=== PATIENT | female | born 1995 | race Caucasian/White ===

== ENCOUNTER → 2017-03-06 | Emergency (ER) | payer OTHER ==
[~2017-03-06] VITALS: Ht 165.1 cm; Wt 54.4 kg
[~2017-03-06] MED LIST: BCP; DEXAMETHASONE PF 10 MG/ML (DECADRON) VIAL IM STA
--- NOTE | 2017-03-06 09:44 | ED General ---
General Chief Complaint: Cough/Cold/Flu Symptoms Stated Complaint: ALLERGIES Nursing Triage Note: AMB TO ED REPORTS HAS SEASON ALLERGIES OTC MEDS WILL NOT HELP. LAST TIME SHE RECEIVED STEROID IM. Nursing Sepsis Screen: No Definite Risk Source of Information: Patient Exam Limitations: No Limitations History of Present Illness Time Seen by Provider: 09:28 Initial Comments Here with report of seasonal allergies that are not responding to over-the- counter meds. She is previously had a steroid shot that was very effective and was hoping for that today. She states that she does not tolerate the over-the- counter medicines such as Claritin very well because it makes her nauseated and she has vomiting at night. She had previously done nasal spray but this caused bleeding of her nose. Reports recently that she has had it she/watery eyes, nasal congestion and itching consistent with allergy symptoms that are now keeping her awake at night and causing problems. Timing/Duration: 1 Week, Getting Worse Severity: Moderate Associated Systoms: No Chest Pain, No Cough, No Fever/Chills, Nausea/Vomiting Allergies and Home Medications Allergies Coded Allergies: ibuprofen (Verified Allergy, Unknown, 03/06/17) Home Medications [Bcp] , (Reported) Constitutional: see HPI EENTM: nose congestion, see HPI, tearing, throat pain Respiratory: No cough, No short of breath Cardiovascular: no symptoms reported Gastrointestinal: see HPI Musculoskeletal: no symptoms reported Skin: no symptoms reported Past Pzcplxw-Rjyphs-Gnkxrh Hx Patient Social History Alcohol Use: Occasionally Uses Recreational Drug Use: No Smoking Status: Current Someday Smoker Recent Foreign Travel: No Contact w/Someone Who Travel: No Recent Infectious Disease Expo: No Seasonal Allergies Seasonal Allergies: Yes Surgeries HX Surgeries: No Respiratory Hx Respiratory Disorders: No Cardiovascular Hx Cardiac Disorders: Yes Cardiac Disorders: Heart Murmur Neurological Hx Neurological Disorders: No Genitourinary Hx Genitourinary Disorders: No Gastrointestinal Hx Gastrointestinal Disorders: No Musculoskeletal Hx Musculoskeletal Disorders: No Endocrine Hx Endocrine Disorders: No HEENT HX ENT Disorders: No Psychosocial Hx Psychiatric Problems: No Reviewed Nursing Assessment Reviewed/Agree w Nursing PMH: Yes Family Medical History Significant Family History: No Pertinent Family Hx Physical Exam Vital Signs Vital Sign - Last 12Hours 03/06/17 09:12 Pulse 76 Resp 18 B/P (MAP) 139/89 Pulse Ox 99 Capillary Refill : Less Than 3 Seconds General Appearance: No Apparent Distress, WD/WN HEENT: TMs Normal, Pharyngeal Erythema, Other (moderate nasal congestion) Neck: Non Tender, Supple Respiratory: Lungs Clear, Normal Breath Sounds Cardiovascular: Regular Rate, Rhythm, No Murmur Gastrointestinal: Non Tender, Soft Neurologic/Psychiatric: Alert, Oriented x3, Normal Mood/Affect Skin: Normal Color, Warm/Dry Progress/Results/Core Measures Results/Orders My Orders Orders - BARBARA KRAUS MD Dexamethasone Pf Injection (Decadron Pf (03/06/17 09:37) Vital Signs/I&O Vital Sign - Last 12Hours 03/06/17 09:12 Pulse 76 Resp 18 B/P (MAP) 139/89 Pulse Ox 99 Blood Pressure Mean: 106 Progress Note : Progress Note Seen and evaluated. Decadron 10 mg IM. Discharged home with return precautions. Patient verbalize understanding instructions and agreement with plan. Departure Impression Impression: Primary Impression: Allergic rhinitis Qualified Codes: J30.1 - Allergic rhinitis due to pollen Disposition: 01 HOME, SELF-CARE Condition: Improved Departure-Patient Inst. Decision time for Depature: 09:45 Referrals: NO,LOCAL PHYSICIAN (PCP/Family) Primary Care Physician Patient Instructions: Seasonal Allergies (DC) Add. Discharge Instructions: All discharge instructions reviewed with patient and/or family. Voiced understanding. You may use yhhp-ldd-pzmwkgi medicines such as Claritin or the generic loratadine, or you may use Zyrtec or the generic cetirizine as needed for allergy symptoms. Another option that you may try is Coricidin. Take medications per package directions. You may use one of the options with do not use them together. You should establish care with a primary care provider in [facility]. Return for worse pain, fever, vomiting, weakness, rhythm problems or other concerns as needed. BARBARA KRAUS MD Mar 06, 2017 09:44
[2017-03-06 09:51] VITALS: BP 138/99
== END ==
LOC: ER 08:43
DX: J30.9 Allergic rhinitis, unspecified (principal); F17.200 Nicotine dependence, unspecified, uncomplicated
CPT/HCPCS: 99282

== ENCOUNTER 2017-03-13 22:05 | Emergency (ER) | payer OTHER ==
[~2017-03-13] VITALS: Ht 165.1 cm; Wt 54.4 kg
[~2017-03-13 22:05] MED LIST changes: -DEXAMETHASONE PF 10 MG/ML (DECADRON) VIAL IM STA
[2017-03-13 22:31] LABS: BILIRUBIN,URINE NEGATIVE (NEGATIVE); KETONES,URINE NEGATIVE (NEGATIVE); LEUKOCYTE ESTERASE ,URINE 3+ (NEGATIVE); NITRITE,URINE NEGATIVE (NEGATIVE); PH,URINE 7 (5-9); PROTEIN,URINE 2+ (NEGATIVE); UROBILINOGEN,URINE NORMAL (NORMAL)
[2017-03-13 22:38] LABS: SQUAMOUS EPITHELIAL CELL,UR 0-2 /HPF
[2017-03-13] MEDS ORDERED: KETOROLAC 30 MG/ML VIAL ONE (22:46)
[2017-03-13] MEDS ORDERED: ONDANSETRON 4 MG/2 ML (SDV) Z0FRAN ONE (22:46)
[2017-03-13] MEDS ORDERED: KETOROLAC 30 MG/ML VIAL IVP STA (22:47)
[2017-03-13] MEDS ORDERED: LACTATED RINGERS 1,000 ML IV ONE ×2 (22:47)
--- NOTE | 2017-03-13 22:47 | ED Abdominal Pain ---
General Chief Complaint: Abdominal/GI Problems Stated Complaint: LOW BACK PAIN/LOWER RIGHT ABD PAIN Source of Information: Patient History of Present Illness Time Seen By Provider: 22:15 Initial Comments C/O RIGHT LOWER BACK PAIN AND LOWER RIGHT ABDOMINAL PAIN SINCE WAKING FROM A NAP AT 1700 TONIGHT WENT TO GYM AFTER THAT, AND PAIN HAS GOTTEN WORSE NOTHING IMPROVES PAIN BUT HAS NOT TAKEN ANYTHING FOR PAIN HAS HAD SLIGHT SUBJECTIVE LOW GRADE FEVER AND HAS HAD CHILLS TONIGHT + NAUSEA, NO VOMITING NO URINARY SYMPTOMS NO HISTORY OF SIMILAR LMP 03/06/17--NUVARING IN PLACE. NO PCP--IS LIVING HERE WITH BOYFRIEND , BUT IS FROM [place], "AND SOMETIMES I LIVE IN [place]" "IT'S CHAOTIC-I MOVE ALL AROUND" Allergies and Home Medications Allergies Coded Allergies: ibuprofen (Verified Allergy, Unknown, 03/14/17) Home Medications Fluconazole 200 Mg Tablet, 200 MG PO DAILY, #3 Prescribed by: ADWOA ESTRADA on 03/14/17 0134 Nitrofurantoin Monohyd/M-Cryst 100 Mg Capsule, 100 MG PO BID, #20 Prescribed by: ADWOA ESTRADA on 03/14/17 0118 [Bcp] , (Reported) Review of Systems Constitutional: see HPI, chills, fever EENTM: No Symptoms Reported Respiratory: No Symptoms Reported Cardiovascular: No Symptoms Reported Gastrointestinal: See HPI, Abdominal Pain, Denies Constipated, Denies Diarrhea , Nausea, Denies Vomiting Genitourinary: See HPI, Denies Burning, Denies Discharge, Denies Frequency, Flank Pain, Denies Hematuria, Denies Incontinence, Denies Pain, Denies Urgency Musculoskeletal: see HPI, back pain Skin: no symptoms reported Psychiatric/Neurological: No Symptoms Reported Endocrine: No Symptoms Reported Hematologic/Lymphatic: No Symptoms Reported Past Xnfjpgs-Nijbwl-Bxwkov Hx Patient Social History Alcohol Use: Regular Use (ON WEEKENDS) Recreational Drug Use: Yes (THC, MUSHROOMS, LSD) Smoking Status: Current Someday Smoker Type Used: Cigarettes Recent Foreign Travel: No Contact w/Someone Who Travel: No Seasonal Allergies Seasonal Allergies: Yes Surgeries HX Surgeries: No Respiratory Hx Respiratory Disorders: No Cardiovascular Hx Cardiac Disorders: Yes Cardiac Disorders: Heart Murmur Neurological Hx Neurological Disorders: No Reproductive System : No Female Reproductive Disorders: Denies Genitourinary Hx Genitourinary Disorders: No Gastrointestinal Hx Gastrointestinal Disorders: No Musculoskeletal Hx Musculoskeletal Disorders: No Endocrine Hx Endocrine Disorders: No HEENT HX ENT Disorders: No Cancer Hx Cancer: No Psychosocial Hx Psychiatric Problems: No Integumentary HX Skin/Integumentary Disorder: No Blood Transfusions Hx Blood Disorders: No Physical Exam Vital Signs VS - Last 72 Hours, by Label 03/13/17 03/14/17 22:05 02:24 Temp 99.4 Pulse 74 79 Resp 14 14 B/P (MAP) 135/76 Pulse Ox 98 98 O2 Delivery Room Air Room Air Capillary Refill : General Appearance: WD/WN, no apparent distress Neck: normal inspection Respiratory: normal breath sounds, no respiratory distress, no accessory muscle use Cardiovascular: regular rate, rhythm, no murmur Gastrointestinal: normal bowel sounds, soft, no organomegaly, no pulsatile mass , No distended, No guarding, No rebound, tenderness (SUPRAPUBIC AND RIGHT FLANK) , No hernia, No mass Extremities: normal inspection Back: CVA tenderness (R) 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, no motor/sensory deficits, alert, normal mood/affect, oriented x 3 Skin: normal color, warm/dry, No rash Progress/Results/Core Measures Results/Orders Lab Results Laboratory Tests Test 03/13/17 22:07 03/13/17 23:15 Range/Units Urine Color YELLOW Urine Clarity CLEAR Urine pH 7 5-9 Urine Specific [place] 1.005 L 1.016-1.022 Urine Protein 2+ H NEGATIVE Urine Glucose (UA) NEGATIVE NEGATIVE Urine Ketones NEGATIVE NEGATIVE Urine Nitrite NEGATIVE NEGATIVE Urine Bilirubin NEGATIVE NEGATIVE Urine Urobilinogen NORMAL NORMAL MG/DL Urine Leukocyte Esterase 3+ H NEGATIVE Urine RBC (Auto) 5+ H NEGATIVE Urine RBC 5-10 H /HPF Urine WBC 10-25 H /HPF Urine Squamous Epithelial Cells 0-2 /HPF Urine Crystals NONE /LPF Urine Bacteria FEW H /HPF Urine Casts NONE /LPF Urine Mucus NEGATIVE /LPF Urine Culture Indicated YES White Blood Count 14.9 H 4.3-11.0 10^3/uL Red Blood Count 4.71 4.35-5.85 10^6/uL Hemoglobin 13.3 11.5-16.0 G/DL Hematocrit 40 35-52 % Mean Corpuscular Volume 84 80-99 FL Mean Corpuscular Hemoglobin 28 25-34 PG Mean Corpuscular Hemoglobin Concent 34 32-36 G/DL Red Cell Distribution Width 13.5 10.0-14.5 % Platelet Count 208 130-400 10^3/uL Mean Platelet Volume 9.1 7.4-10.4 FL Neutrophils (%) (Auto) 70 42-75 % Lymphocytes (%) (Auto) 16 12-44 % Monocytes (%) (Auto) 9 0-12 % Eosinophils (%) (Auto) 5 0-10 % Basophils (%) (Auto) 1 0-10 % Neutrophils # (Auto) 10.4 H 1.8-7.8 X 10^3 Lymphocytes # (Auto) 2.4 1.0-4.0 X 10^3 Monocytes # (Auto) 1.3 H 0.0-1.0 X 10^3 Eosinophils # (Auto) 0.7 H 0.0-0.3 10^3/uL Basophils # (Auto) 0.1 0.0-0.1 10^3/uL Neutrophils % (Manual) 68 % Lymphocytes % (Manual) 19 % Monocytes % (Manual) 7 % Eosinophils % (Manual) 4 % Basophils % (Manual) 0 % Band Neutrophils 0 % Reactive Lymphocytes 2 % Blood Morphology Comment NORMAL Sodium Level 135 135-145 MMOL/L Potassium Level 3.4 L 3.6-5.0 MMOL/L Chloride Level 100 98-107 MMOL/L Carbon Dioxide Level 24 21-32 MMOL/L Anion Gap 11 5-14 MMOL/L Blood Urea Nitrogen 12 7-18 MG/DL Creatinine 0.78 0.60-1.30 MG/DL Estimat Glomerular Filtration Rate > 60 BUN/Creatinine Ratio 15 Glucose Level 107 H 70-105 MG/DL Calcium Level 9.2 8.5-10.1 MG/DL Total Bilirubin 0.7 0.1-1.0 MG/DL Aspartate Amino Transf (AST/SGOT) 22 5-34 U/L Alanine Aminotransferase (ALT/SGPT) 27 0-55 U/L Alkaline Phosphatase 39 L 40-136 U/L Total Protein 7.8 6.4-8.2 GM/DL Albumin 4.1 3.2-4.5 GM/DL Amylase Level 41 25-125 U/L Lipase 17 8-78 U/L My Orders Orders - ADWOA ESTRADA DO Urine Bedside (03/13/17 22:15) Ua Culture If Indicated (03/13/17 22:15) Saline Lock/Iv-Start (03/13/17 22:21) Amylase (03/13/17 22:21) Cbc With Automated Diff (03/13/17 22:21) Comprehensive Metabolic Panel (03/13/17 22:21) Lipase (03/13/17 22:21) Urine Culture (03/13/17 22:07) Saline Lock/Iv-Start (03/13/17 22:47) Ct Abd/Pelvis Wo(Kidney Stone) (03/13/17 22:47) Acute Abd Series (03/13/17 22:47) Ketorolac Injection (Toradol Injection) (03/13/17 22:47) Saline Lock/Iv-Start (03/13/17 22:47) Lactated Ringers (Lr 1000 Ml Iv Solution (03/13/17 22:47) Ondansetron Injection (Zofran Injectio (03/13/17 23:00) Diphenhydramine Injection (Benadryl Inje (03/13/17 23:00) Diphenhydramine Injection (Benadryl Inje (03/13/17 22:49) Manual Differential (03/13/17 23:15) Ceftriaxone Injection (Rocephin Injectio (03/14/17 01:15) Rx-Nitrofurantoin [place] (Rx-Macrobid) (03/14/17 01:15) Nitrofurantoin Capsule,Macro (Macrobid C (03/14/17 01:45) Ketorolac Injection (Toradol Injection) (03/13/17 22:46) Lactated Ringers (Lr 1000 Ml Iv Solution (03/13/17 22:47) Ondansetron Injection (Zofran Injectio (03/13/17 22:46) Medications Given in ED Current Medications Medications Dose Ordered Sig/Vanna Route Start Time Stop Time Status Last Admin Dose Admin Ceftriaxone Sodium 1000 mg/ Sodium Chloride 50 ml @ 100 mls/hr ONCE ONCE IV 03/14/17 01:15 03/14/17 01:44 DC 03/14/17 01:39 100 MLS/HR Diphenhydramine HCl 25 mg ONCE ONCE IVP 03/13/17 23:00 03/13/17 23:01 DC 03/13/17 23:05 25 MG Lactated Ringer's 1,000 ml @ 0 mls/hr Q0M ONCE IV 03/13/17 22:47 03/14/17 02:35 DC 03/13/17 23:03 0 MLS/HR Nitrofurantoin Macrocrystals 100 mg ONCE ONCE PO 03/14/17 01:45 03/14/17 01:46 DC 03/14/17 01:39 100 MG Ondansetron HCl 4 mg ONCE ONCE IVP 03/13/17 23:00 03/14/17 02:35 DC 03/13/17 23:04 4 MG Vital Signs/I&O Vital Sign - Last 12Hours 03/13/17 03/14/17 22:05 02:24 Temp 99.4 Pulse 74 79 Resp 14 14 B/P (MAP) 135/76 Pulse Ox 98 98 O2 Delivery Room Air Room Air Diagnostic Imaging Comments CT ABDOMEN /PELVIS--NO ACUTE PROCESS, PER RADIOLOGIST REPORT @ 0056 ACUTE ABDOMEN XRAYS--NO ACUTE PROCESS, PENDING RADIOLOGIST REVIEW Reviewed: Reviewed by Me Departure Impression Impression: Primary Impression: Urinary tract infection Disposition: HOME, SELF-CARE Condition: Stable Departure-Patient Inst. Referrals: NO,LOCAL PHYSICIAN (PCP/Family) Primary Care Physician Patient Instructions: Urinary Tract Infection, Adult (DC) Add. Discharge Instructions: LOTS OF CLEAR LIQUIDS--NO COFFEE, POP OR TEA TYLENOL AND MOTRIN NEEDED FOR PAIN OR FEVER FOLLOW UP WITH DRLorie OF CHOICE IN 3-4 DAYS IF NO BETTER All discharge instructions reviewed with patient and/or family. Voiced understanding. Scripts Fluconazole (Diflucan) 200 Mg Tablet 200 MG PO DAILY for FOR YEAST INFECTION, #3 TAB Prov: ADWOA ESTRADA DO 03/14/17 Nitrofurantoin Monohyd/M-Cryst (Macrobid 100 mg Capsule) 100 Mg Capsule 100 MG PO BID, #20 CAP Prov: ADWOA ESTRADA DO 03/14/17 ADWOA ESTRADA DO Mar 13, 2017 22:47
[2017-03-13] MEDS ORDERED: diphenhydrAMINE 50 MG/ML INJ (BENADRYL) ONE (22:49)
[2017-03-13] MEDS ORDERED: diphenhydrAMINE 50 MG/ML INJ (BENADRYL) IVP ONE (23:00)
[2017-03-13] MEDS ORDERED: ONDANSETRON 4 MG/2 ML (SDV) Z0FRAN IVP ONE (23:00)
[2017-03-13 23:42] LABS: BASOPHILS # (AUTO) 0.1 10^3/uL (0.0-0.1); BASOPHILS % (AUTO) 1 % (0-10); EOSINOPHILS # (AUTO) 0.7 10^3/uL (0.0-0.3); EOSINOPHILS % (AUTO) 5 % (0-10); LYMPHOCYTES # (AUTO) 2.4 X 10^3 (1.0-4.0); LYMPHOCYTES % (AUTO) 16 % (12-44); MEAN CORPUSCULAR HEMOGLOBIN 28 PG (25-34); MEAN CORPUSCULAR HGB CONC 34 G/DL (32-36); MEAN CORPUSCULAR VOLUME 84 FL (80-99); MEAN PLATELET VOLUME 9.1 FL (7.4-10.4); MONOCYTES # (AUTO) 1.3 X 10^3 (0.0-1.0); MONOCYTES % (AUTO) 9 % (0-12); NEUTROPHILS # (AUTO) 10.4 X 10^3 (1.8-7.8); NEUTROPHILS % (AUTO) 70 % (42-75); PLATELET COUNT 208 10^3/uL (130-400); RED BLOOD COUNT 4.71 10^6/uL (4.35-5.85); RED CELL DISTRIBUTION WIDTH 13.5 % (10.0-14.5); WHITE BLOOD COUNT 14.9 10^3/uL (4.3-11.0)
[2017-03-14 00:07] LABS: ANION GAP 11 MMOL/L (5-14); BAND NEUTROPHILS 0 %; BASOPHILS % (MANUAL) 0 %; BLOOD UREA NITROGEN 12 MG/DL (7-18); BUN/CREATININE RATIO 15; CARBON DIOXIDE 24 MMOL/L (21-32); CHLORIDE 100 MMOL/L (98-107); CREATININE SERUM 0.78 MG/DL (0.60-1.30); EOSINOPHILS % (MANUAL) 4 %; GFR ESTIMATED > 60; GLUCOSE 107 MG/DL (70-105); LYMPHOCYTES % (MANUAL) 19 %; NEUTROPHILS % (MANUAL) 68 %; POTASSIUM 3.4 MMOL/L (3.6-5.0); REACTIVE LYMPHOCYTES 2 %; SODIUM 135 MMOL/L (135-145)
[2017-03-14 00:08] LABS: ALANINE AMINOTRANSFERASE 27 U/L (0-55); ALBUMIN 4.1 GM/DL (3.2-4.5); AMYLASE 41 U/L (25-125); ASPARTATE AMINO TRANSFERASE 22 U/L (5-34); BILIRUBIN,TOTAL 0.7 MG/DL (0.1-1.0); CALCIUM 9.2 MG/DL (8.5-10.1); LIPASE 17 U/L (8-78); TOTAL PROTEIN 7.8 GM/DL (6.4-8.2)
[2017-03-14] MEDS ORDERED: RX-NITROFURANTOIN 100 MG (MACROBID) CAP PPK#2 PO STA (01:15)
[2017-03-14] MEDS ORDERED: cefTRIAXone INJECTION 1,000 MG in NS (IVPB) 50 ML IV ONE (01:15)
[2017-03-14] MEDS ORDERED: NITR-65 PO (01:18)
[2017-03-14] MEDS ORDERED: FLUC200T PO (01:34)
[2017-03-14] MEDS ORDERED: NITROFURANTOIN 100 MG (MACROBID) CAPSULE PO ONE (01:45)
[2017-03-14 02:24] VITALS: BP 118/62
--- NOTE | 2017-03-14 07:17 | Diagnostic Imaging Report ---
PROCEDURE: CT urinary tract, rule out kidney stone. TECHNIQUE: Multiple contiguous axial images were obtained through the abdomen and pelvis without the use of intravenous contrast. INDICATION: Right-sided abdominal pain shooting from the lower right ribs to the superior hip region. No previous history of stones. No previous surgeries. FINDINGS: Examination demonstrates borderline hepatosplenomegaly. The gallbladder appears normal. No duct dilatation is present. The lung bases are clear. The pancreas, adrenal glands and kidneys are normal. No renal calculi or hydronephrosis present. The appendix is normal. The uterus and adnexal structures are unremarkable. Trace amount of free fluid is present in the cul-de-sac which is usually physiological. Moderate amount of stool is seen in the colon. No inflammatory changes or obstruction are present. The osseous structures appear normal. IMPRESSION: 1. Borderline hepatosplenomegaly. 2. Moderate amount of stool is present in the colon, possible mild constipation. Dictated by: Dictated on workstation # [id number]
--- NOTE | 2017-03-14 09:41 | Diagnostic Imaging Report ---
INDICATION: Right-sided abdominal pain shooting from the lower right ribs to the superior hip region. FINDINGS: Upright view of the chest demonstrate the lungs to be clear. The heart, mediastinum, pulmonary vascularity and visualized bony thorax are normal. Supine and upright views of the abdomen demonstrate normal bowel gas pattern. No free air or air-fluid levels are present. There are no abnormal calcifications. IMPRESSION: Normal obstructive series. Dictated by: Dictated on workstation # [id number]
[2017-03-16] MEDS ORDERED: SULF1TAB35 PO (14:21)
== END 2017-03-14 02:35 | disposition home or self-care (01) ==
LOC: EDUNIT# 22:05 → ER 22:06
DX: N39.0 Urinary tract infection, site not specified (principal); F17.210 Nicotine dependence, cigarettes, uncomplicated
CPT/HCPCS: 36415; 74022; 74176; 80053; 81000; 82150; 83690; 84703; 85007; 85027; 87088; 96361; 96365; 96375